=== PATIENT | female | born 1995 | race Caucasian/White ===

== ENCOUNTER 2022-06-18 11:42 | Emergency (ER) | payer MEDICAID, OTHER ==
[~2022-06-18] VITALS: Ht 157.5 cm; Wt 86.2 kg
[~2022-06-18 11:42] MED LIST: CALC500T46 PO; FER325 PO; FOLI1TAB19 PO; LORA10TA60 PO; PRETAB PO
[2022-06-18 11:49] VITALS: BP 134/91
--- NOTE | 2022-06-18 12:03 | NUR ---
26YO FEMALE PT C/O INTERMITTENT SHARP LOWER ABD PAIN [id number]. REPORTS SUDDEN EPISODES W/ RADIATION TO PELVIC. NOTES RECENT NAUSEA AND DECREASE IN APPETITE .ABDOMEN TENDER TO TOUCH, NON DISTENDED. DENIES V/D, CONSTIPATION, FEVER OR CHILLS. PT AAOX4, NO VISIBLE DISTRESS. HOB POSITIONED PER COMFORT. HX:DENIES NKA
[2022-06-18] MEDS ORDERED: NACL 0.9% 1,000 ML IV ONE (12:40)
[2022-06-18] MEDS ORDERED: ONDANSETRON 4 MG/2 ML VIAL IVP ONE (12:40)
[2022-06-18] MEDS ORDERED: KETOROLAC 30 MG/ML VIAL IVP ONE (12:40)
--- NOTE | 2022-06-18 12:57 | NUR ---
PT TAKEN TO CT VIA STELLA
--- NOTE | 2022-06-18 13:06 | NUR ---
PT BROUGHT BACK VIA STELLA
[2022-06-18 13:09] LABS: APPEARANCE,URINE CLOUDY (CLEAR); BILIRUBIN,URINE NEGATIVE (NEGATIVE); BLOOD, URINE 3+ (NEGATIVE); COLOR,URINE YELLOW (YELLOW); LEUKOCYTE ESTERASE ,URINE 2+ (NEGATIVE); NITRITE, URINE NEGATIVE (NEGATIVE); UGLUCOSE NEGATIVE (NEGATIVE)
[2022-06-18 13:21] LABS: RBC,URINE 20-50 /HPF (0-5)
[2022-06-18 13:22] LABS: OTHER CASTS, URINE None Seen /LPF (None Seen); YEAST,URINE Few /HPF (None Seen)
[2022-06-18 13:25] LABS: BASOPHILS % (AUTO) 0.3 % (0.0-2.0); EOSINOPHILS % (AUTO) 0.1 % (0.0-4.0); HEMATOCRIT 34.2 % (36-48); HEMOGLOBIN 11.9 g/dL (12.0-16.0); LYMPHOCYTES % (AUTO) 9.8 % (20.5-51.1); MEAN CORPUSCULAR HEMOGLOBIN 25 pg (27-31); MEAN CORPUSCULAR HGB CONC 35 g/dL (33-37); MEAN CORPUSCULAR VOLUME 71.1 fL (80-94); MONOCYTES # (AUTO) 1.2 K/uL (0.8-1.0); MONOCYTES % (AUTO) 11.1 % (1.7-9.3); NEUTROPHILS # (AUTO) 8.3 K/uL (1.8-7.7); NEUTROPHILS % (AUTO) 78.7 % (42.2-75.2); PLATELET COUNT (AUTO) 257 K/uL (140-450); RED BLOOD CELL COUNT(AUTO) 4.82 MIL/uL (4.20-5.40); WHITE BLOOD COUNT (AUTO) 10.5 K/uL (4.8-10.8)
[2022-06-18 13:27] LABS: ALBUMIN 3.5 g/dL (3.4-5.0); ANION GAP 14.5 (8-16); CARBON DIOXIDE 25.2 mmol/L (21-32); CREATININE 0.7 mg/dL (0.6-1.3); POTASSIUM 3.7 mmol/L (3.5-5.1); TOTAL BILIRUBIN 0.6 mg/dL (0.0-1.0)
[2022-06-18 14:00] VITALS: BP 138/73
[2022-06-18] MEDS ORDERED: cefTRIAXone 1,000 MG VIAL ONE (14:01)
[2022-06-18] MEDS ORDERED: ONDA-188 PO (14:15)
[2022-06-18] MEDS ORDERED: CIPR500T4 PO (14:15)
[2022-06-18] MEDS ORDERED: IBUP-2213 PO (14:15)
--- NOTE | 2022-06-18 15:19 | NUR ---
Patient discharged with v/s stable. Written and verbal after care instructions FOR PYLONEPHRITIS given and explained. Patient alert, oriented and verbalized understanding of instructions. Ambulatory with steady gait. All questions addressed prior to discharge. ID band removed. Patient advised to follow up with PMD. Rx of CIPRO, IBUPROFEN AND ZOFRAN given. Opportunity to ask questions provided and answered.
--- NOTE | 2022-06-18 15:21 | NUR ---
The patient's care was reviewed and supervised by [place] 05 SALLY, RN.
== END 2022-06-18 15:19 | disposition home or self-care (01) ==
LOC: MED 11:42
DX: N12 Tubulo-interstitial nephritis, not specified as acute or chronic (principal)
CPT/HCPCS: 36415; 74176; 80053; 81001; 81025; 83690; 85025; 87086; 96361; 96365; 96375; 99285; J0696; J1885; J2405